=== PATIENT | male | born 1960 | race Caucasian/White ===

== ENCOUNTER 2024-01-09 13:28 | Emergency (ER) | payer OTHER ==
[~2024-01-09] VITALS: Ht 162.6 cm; Wt 78.5 kg
[2024-01-09 13:39] VITALS: O2SAT 100
[2024-01-09] MEDS: TETRACAINE 0.5% OPHTH DROPS 4ML LEFTEYE ONE (15:00)
[2024-01-09] MEDS: ACETAMINOPHEN 325MG TABLET PO ONE (15:15)
[2024-01-09] MEDS: BALANCED SALT IRRIG SOLN 15ML IR ONE (16:24)
[2024-01-09] MEDS: FLUORESCEIN SODIUM 1MG/STRIP LEFTEYE ONE (17:30)
[2024-01-09] MEDS ORDERED: BO1 TP (18:19)
[2024-01-09] MEDS ORDERED: OCUFLX LEFTEYE (18:19)
[2024-01-09 18:35] VITALS: BP 156/75; PULSE 89; RESP 17; TEMP 36.94740; O2SAT 100
== END 2024-01-09 18:58 | disposition home or self-care (01) ==
LOC: ER 13:28
DX: H57.12 Ocular pain, left eye (principal)
CPT/HCPCS: 99283